=== PATIENT | female | born 1980 | race Caucasian/White ===

== ENCOUNTER 2018-03-26 03:01 | Emergency (ER) | payer OTHER ==
[~2018-03-26] VITALS: Ht 160 cm; Wt 68.0 kg
[2018-03-26] MEDS ORDERED: NORCO 7.5-3251 EACH PO (03:36)
[2018-03-26 03:55] VITALS: BP 140/83
== END 2018-03-26 03:55 | disposition home or self-care (01) ==
LOC: M.ERS 03:01
DX: S63.637A Sprain of interphalangeal joint of left little finger, initial encounter (principal); F17.210 Nicotine dependence, cigarettes, uncomplicated; W23.0XXA Caught, crushed, jammed, or pinched between moving objects, initial encounter; Y93.89 Activity, other specified; Y92.89 Other specified places as the place of occurrence of the external cause; Y99.8 Other external cause status